=== PATIENT | female | born 1985 | race Native Hawaiian/Other Pacific Islander ===

== ENCOUNTER 2017-12-07 23:39 | Emergency (ER) | payer MEDICAID ==
[~2017-12-07] VITALS: Ht 162.6 cm; Wt 104.3 kg
[2017-12-07 23:59] VITALS: BP 146/75
[2017-12-08] MEDS ORDERED: KETOROLAC TROMETH 60MG/2ML VIAL IM ONE (03:15)
[2017-12-08] MEDS ORDERED: BACLOFEN 10 MG TAB PO ONE (03:15)
[2017-12-08 03:30] LABS: Urine Bacteria FEW /hpf (None Seen); Urine Blood 1+ /uL (Negative); Urine Specific Gravity 1.022 (1.001-1.035); Urine WBC 1 /hpf (0 - 5)
== END 2017-12-08 04:56 | disposition home or self-care (01) ==
LOC: ER 23:41
DX: S33.5XXA Sprain of ligaments of lumbar spine, initial encounter (principal); M79.1 Myalgia; X58.XXXA Exposure to other specified factors, initial encounter; Y93.89 Activity, other specified; Y92.89 Other specified places as the place of occurrence of the external cause; Y99.8 Other external cause status
CPT/HCPCS: 72131; 74176; 81001; 81025; 96372; 99285; J1885

== ENCOUNTER 2021-02-08 18:19 | Emergency (ER) | payer MEDICAID ==
[~2021-02-08] VITALS: Ht 162.6 cm; Wt 121.6 kg
[2021-02-08 18:27] VITALS: BP 136/80
== END 2021-02-08 23:17 | disposition home or self-care (01) ==
LOC: ER 18:19
DX: S73.102A Unspecified sprain of left hip, initial encounter (principal); F17.210 Nicotine dependence, cigarettes, uncomplicated; X58.XXXA Exposure to other specified factors, initial encounter; Y93.89 Activity, other specified; Y92.89 Other specified places as the place of occurrence of the external cause; Y99.8 Other external cause status
CPT/HCPCS: 72192